=== PATIENT | female | born 2000 | race Two or more races ===

== ENCOUNTER 2024-03-09 15:03 | Outpatient (CLI) | payer OTHER | END 2024-03-09 15:06 | disposition home or self-care (01) | LOC: PRENATAL 15:03 | PROVIDERS: ATTEND Obstetrics & Gynecology Maternal & Fetal Medicine | DX: O26.849 Uterine size-date discrepancy, unspecified trimester (principal); O44.00 Complete placenta previa NOS or without hemorrhage, unspecified trimester; Z3A.28 28 weeks gestation of pregnancy ==

== ENCOUNTER 2024-04-14 11:58 | Outpatient (CLI) | payer OTHER | END 2024-04-14 12:01 | disposition home or self-care (01) | LOC: PRENATAL 11:58 | PROVIDERS: ATTEND Obstetrics & Gynecology Maternal & Fetal Medicine | DX: O26.849 Uterine size-date discrepancy, unspecified trimester (principal); O36.8199 Decreased fetal movements, unspecified trimester, other fetus; Z3A.34 34 weeks gestation of pregnancy ==

== ENCOUNTER 2024-05-22 14:30 | Inpatient (IN) | payer OTHER ==
[~2024-05-22] VITALS: Ht 160 cm; Wt 70.8 kg
[2024-05-22 16:25] LABS: HEMATOCRIT 37.2 % (36.0-45.00); HEMOGLOBIN 12.3 g/dL (12.0-15.00); MEAN CELL VOLUME 90.3 fL (80.00-100.00); MEAN CORPUSCULAR HEMOGLOBIN 29.9 pg (27.00-32.0); MEAN CORPUSCULAR HGB CONC 33.1 g/dl (32.0-36.0); PLATELET COUNT 194 K/uL (150-450); RED BLOOD COUNT 4.12 M/uL (4.00-6.00); RED CELL DISTRIBUTION WIDTH 13.5 % (11.5-14.5)
[2024-05-22 16:26] LABS: URINE APPEARANCE Clear; URINE BILIRRUBIN Negative (NEGATIVE); URINE BLOOD Negative; URINE COLOR Yellow; URINE GLUCOSE Negative (NEGATIVE); URINE KETONE Negative (NEGATIVE); URINE LEUKOCYTE Small; URINE NITRATE Negative; URINE PROTEIN Negative (NEGATIVE); URINE UROBILINOGEN 0.2 E.U./dl
[2024-05-22 16:29] LABS: URINE BACTERIA 638.8 uL (0.0-1933); URINE EPITHELIAL CELLS 11.5 uL (0.0-38.8)
[2024-05-22 16:32] LABS: URINE RBC 0.8 uL (0.0-20.8)
[2024-05-22 16:47] LABS: INR < 0.93; PARTIAL THROMBOPLASTIN TIME 27.9 SECONDS (22.0-34.0); PROTHROMBIN TIME 10.2 SECONDS (9.0-11.5)
[2024-05-22 16:51] LABS: ALBUMIN 2.9 gm/dL (3.4-5.0); BILIRUBIN TOTAL 0.38 mg/dL (0.3-1.2); CALCIUM 9.1 mg/dL (8.5-10.1); CREATININE SERUM 0.66 mg/dL (0.55-1.02); GFR 108.25; GLOBULINA 3.9 G/DL (2.4-3.5); POTASSIUM 4.21 mEq/L (3.5-5.1); TOTAL PROTEIN 6.8 gm/dL (6.4-8.2)
[2024-05-23 16:26] VITALS: BP 115/63
[2024-05-23] MEDS ORDERED: MISOPROSTOL 25 MCG/4 ML GEL.W.APPL ONE (17:11)
[2024-05-23] MEDS ORDERED: PRENATAL + DHA1 EAC1 PO (17:18)
[2024-05-23] MEDS ORDERED: MISOPROSTOL 25 MCG/4 ML GEL.W.APPL VAG ONE (17:45)
[2024-05-23 20:31] VITALS: BP 136/71
[2024-05-24] VITALS (8 sets, daily range): BP systolic 107–142; BP diastolic 60–71
[2024-05-24] MEDS ORDERED: MORPHINE SULFATE 4 MG/ML VIAL IV PRN (02:00)
[2024-05-24] MEDS ORDERED: ERYTHROMYCIN BASE OPHT 1GM EACH TUBE OP ONE ×2 (04:52→08:15)
[2024-05-24] MEDS ORDERED: LIDOCAINE HCL 1% 10ML VIAL ONE (04:52)
[2024-05-24] MEDS ORDERED: CHLORHEXIDINE GLUCONATE 120 ML BOTTLE TOP ONE (04:52)
[2024-05-24] MEDS ORDERED: OXYTOCIN 20 UNITS/1000ML RL PIGGYBAG IV ONE (04:52)
[2024-05-24] MEDS ORDERED: CHLORHEXIDINE GLUCONATE 120 ML BOTTLE TOP SCH (08:00)
[2024-05-24] MEDS ORDERED: OXYTOCIN 1,000 ML IV SCH (08:00)
[2024-05-24] MEDS ORDERED: ACETAMINOPHEN 500 MG GEL..CAP PO PRN (08:00)
[2024-05-24] MEDS ORDERED: BENZOCAINE/MENTHOL 90 ML BOTTLE TOP PRN (08:00)
[2024-05-24] MEDS ORDERED: LIDOCAINE HCL 1% 10ML VIAL IJ ONE (08:15)
[2024-05-24] MEDS ORDERED: PNV,CALCIUM 72/IRON/FOLIC ACID 1 TAB TABLET PO SCH (09:00)
[2024-05-24 19:29] LABS: HEMATOCRIT 30.5 % (36.0-45.00); HEMOGLOBIN 10.2 g/dL (12.0-15.00); MEAN CELL VOLUME 88.3 fL (80.00-100.00); MEAN CORPUSCULAR HEMOGLOBIN 29.6 pg (27.00-32.0); MEAN CORPUSCULAR HGB CONC 33.5 g/dl (32.0-36.0); PLATELET COUNT 158 K/uL (150-450); RED BLOOD COUNT 3.46 M/uL (4.00-6.00); RED CELL DISTRIBUTION WIDTH 13.7 % (11.5-14.5)
[2024-05-25 00:19] VITALS: BP 115/70
[2024-05-25 07:00] VITALS: BP 113/69
[2024-05-25 15:00] VITALS: BP 113/67
[2024-05-26 03:38] VITALS: BP 119/69
[2024-05-26 08:22] VITALS: BP 111/78
== END 2024-05-26 15:34 | disposition home or self-care (01) | DRG 806 ==
LOC: LDR 05-23 16:06 → OB/GYN 05-23 16:06
PROVIDERS: Obstetrics & Gynecology; ADMIT Obstetrics & Gynecology; ATTEND Obstetrics & Gynecology
PROC: 3E0P7VZ Introduction of Hormone into Female Reproductive, Via Natural or Artificial Opening (ICD-10-PCS; 2024-05-23)
PROC: 4A1HXCZ Monitoring of Products of Conception, Cardiac Rate, External Approach (ICD-10-PCS; 2024-05-23)
PROC: 10E0XZZ Delivery of Products of Conception, External Approach (ICD-10-PCS; principal; 2024-05-24)
PROC: 0KQM0ZZ Repair Perineum Muscle, Open Approach (ICD-10-PCS; 2024-05-24)
PROC: 3E033VJ Introduction of Other Hormone into Peripheral Vein, Percutaneous Approach (ICD-10-PCS; 2024-05-24)
DX: O70.1 Second degree perineal laceration during delivery (principal); O41.03X0 Oligohydramnios, third trimester, not applicable or unspecified; Z37.0 Single live birth; Z3A.39 39 weeks gestation of pregnancy